=== PATIENT | female | born 1960 | race Caucasian/White ===

== ENCOUNTER 2021-05-28 15:25 | Emergency (ER) | payer OTHER ==
[2021-05-28 16:49] LABS: HEMOGLOBIN 16.4 gm/dl (12.3-15.3); RED BLOOD COUNT 5.26 M/UL (4.00-5.10); WHITE BLOOD COUNT 4.6 K/UL (4.5-11.0)
[2021-05-28 17:14] LABS: BUN/CREATININE RATIO 13 (0-10)
[2021-05-28] MEDS ORDERED: METFORMIN HCL500 MG PO (18:26)
[2021-05-28] MEDS ORDERED: GLYBURIDE2.5 MG PO (18:26)
[2021-05-28] MEDS ORDERED: ANTIFUNGAL30 GM TP (18:31)
== END 2021-05-28 18:40 | disposition home or self-care (01) ==
LOC: ER1 15:25
PROVIDERS: Family Medicine
DX: E11.65 Type 2 diabetes mellitus with hyperglycemia (principal); F17.200 Nicotine dependence, unspecified, uncomplicated
CPT/HCPCS: 80053; 82009; 82803; 82962; 85025; 96374; 99283

== ENCOUNTER 2021-07-03 18:15 | Emergency (ER) | payer OTHER ==
[~2021-07-03 18:15] MED LIST: ANTIFUNGAL30 GM TP; GLYBURIDE2.5 MG PO; METFORMIN HCL500 MG PO
[2021-07-03 20:10] LABS: HEMOGLOBIN 15.2 gm/dl (12.3-15.3); RED BLOOD COUNT 5.07 M/UL (4.00-5.10); WHITE BLOOD COUNT 4.9 K/UL (4.5-11.0)
[2021-07-03 20:45] LABS: BUN/CREATININE RATIO 23 (0-10)
[2021-07-04 01:05] LABS: BUN/CREATININE RATIO 24 (0-10)
[2021-07-04 03:22] LABS: BUN/CREATININE RATIO 23 (0-10)
[2021-07-04] MEDS ORDERED: LACTULOSE20 GM/30 M PO (03:40)
== END 2021-07-04 04:20 | disposition home or self-care (01) ==
LOC: ER1 18:15
PROVIDERS: Family Medicine
DX: R73.9 Hyperglycemia, unspecified (principal); K74.60 Unspecified cirrhosis of liver; R74.01 Elevation of levels of liver transaminase levels; J44.9 Chronic obstructive pulmonary disease, unspecified
CPT/HCPCS: 70450; 71045; 80048; 80053; 80307; 81001; 82140; 82962; 83605; 83690; 85025; 85610; 87040; 93005; 96374; 99285; J7030